=== PATIENT | female | born 1995 | race Caucasian/White ===

== ENCOUNTER 2016-07-30 04:16 | Emergency (ER) ==
[2016-07-30 04:18] VITALS: BMI 17.4
[2016-07-30 04:28] VITALS: BP 132/69; TEMP 98.5
[2016-07-30] MEDS ORDERED: NORCO 7.5-325 PO STA (04:57)
[2016-07-30] MEDS ORDERED: DECADRON 4 MG/ML SDV IM STA (04:57)
--- NOTE | 2016-07-30 05:00 | ED.PDOC ---
General ED Provider: Dr. DEMETRIO RAJPUT Chief Complaint: Back Pain Stated Complaint: Was trying to move the table yesterday night, it started the lower back pain, radiates to right leg, Time Seen by Physician: 04:58 Mode of Arrival: Walk-In Information Source: Patient Primary Care Provider: RUFUS NERI Nursing and Triage Documentation Reviewed and Agree: Yes Musculoskeletal Complaint Exam - Back Pain Complaint/Exam Mechanism of Injury: Reports: No known trauma Symptoms Are: Still present Timing: Constant Episodes Lasting: Hours Initial Severity: Moderate Current Severity: Moderate Location: Reports: Discrete Character: Reports: Aching, Throbbing Aggravating: Reports: Movements, Lifting Alleviating: Reports: None Associated Signs and Symptoms: Denies: Swelling, Redness, Bruising, Fever, Weakness, Numbness, Tingling, Abdominal pain, Flank pain, Bladder incontinence, Bowel incontinence, Weight loss, Pain with weight bearing Related History: Reports: Similar episode TAD Risk Factors: Reports: None AAA Risk Factors: Reports: None Cauda Equina Risk Factors: Reports: None Epidural Abcess Risk Factors: Reports: None Related Surgical History: Reports: None Focal Tenderness: Yes Paraspinal Muscle Tenderness: Yes Paraspinal Muscle Spasm: Yes Scoliosis: Yes Lordosis: No Kyphosis: No SLR Test: Right Positive, Left Negative Hip Motion Testing Pain: Right Negative, Left Negative Focal Weakness: Present: None Focal Sensory Loss: Present: None Gait: Present: Normal Differential Diagnoses: Herniated Disk, Sprain Review of Systems - Review Of Systems Constitutional: Reports: No symptoms Eyes: Reports: No symptoms Ears, Nose, Mouth, Throat: Reports: No symptoms Respiratory: Reports: No symptoms Cardiac: Reports: No symptoms GI: Reports: No symptoms : Reports: No symptoms Musculoskeletal: Reports: Back pain Skin: Reports: No symptoms Neurological: Reports: No symptoms Endocrine: Reports: No symptoms Hematologic/Lymphatic: Reports: No symptoms All Other Systems: Reviewed and Negative Past Medical History - Past Medical History Previously Healthy: No Endocrine: Reports: None Cardiovascular: Reports: None Respiratory: Reports: None Hematological: Reports: None Gastrointestinal: Reports: None Genitourinary: Reports: None Neuro/Psych: Reports: None Musculoskeletal: Reports: Back Pain Cancer: Reports: None Last Menstrual Period: 07/11/16 Other Pertinent Past Medical History: chronic low back pain..followed in [place] - Surgical History General Surgical History: Reports: Unknown - Family History Family History: Reports: Unknown - Social History Smoking Status: Current every day smoker, Light tobacco smoker Smoking Cessation Counseling Time: > 3 min - 10 min Hx Substance Use: No Alcohol Screening: None - Immunizations Tetanus Shot up to Date: Yes Physical Exam - Physical Exam Appearance: Well-appearing, Thin Pain Distress: Moderate Eyes: BREONNA, EOMI, Conjunctiva clear ENT: Ears normal, Nose normal, Oropharynx normal Respiratory: Airway patent, Breath sounds clear, Breath sounds equal, Respirations nonlabored Cardiovascular: RRR, Pulses normal, No rub, No murmur GI/: Soft, Nontender, No masses, Bowel sounds normal, No Organomegaly Musculoskeletal: ROM intact, No edema, No calf tenderness, Limited ROM Skin: Warm, Dry, Normal color Neurological: Sensation intact, Motor intact, Reflexes intact, Cranial nerves intact, Alert, Oriented Psychiatric: Affect appropriate, Mood appropriate Critical Care Note - Critical Care Note Total Time (mins): 0 Course - Course Orders, Labs, Meds: Lab Review 07/30/16 04:30 Urine Color Yellow Urine Clarity Clear Urine pH 7.0 Ur Specific [place] 1.010 Urine Protein Negative Urine Glucose (UA) Negative Urine Ketones Negative Urine Blood Negative Urine Nitrite Negative Urine Bilirubin Negative Urine Urobilinogen 0.2 Ur Leukocyte Esterase Negative Urine Test Negative Orders Category Date Time Status URINALYSIS C & S IF INDICATED Stat LAB 07/30/16 04:30 Completed URINE Stat LAB 07/30/16 04:30 Completed Dexamethasone 4 mg/ml Inj [Decadron 4 mg/ml Sdv] MEDS 07/30/16 04:57 Discontinued 4 mg IM ONCE STA Hydrocodone Bit/Acetaminophen [[place] 7.5-325] MEDS 07/30/16 04:57 Discontinued 1 tab PO ONCE STA CT LUMBAR SPINE W/O CONTRAST Stat RADS 07/30/16 04:57 Ordered Medications Discontinued Medications Generic Name Dose Route Start Last Admin Trade Name Freq PRN Reason Stop Dose Admin Acetaminophen/Hydrocodone Bitart 1 tab 07/30/16 04:57 [place] 7.5-325 PO 07/30/16 04:58 ONCE STA Dexamethasone Sodium Phosphate 4 mg 07/30/16 04:57 Decadron 4 Mg/Ml Sdv IM 07/30/16 04:58 ONCE STA Vital Signs: Temp Pulse Resp BP Pulse Ox 07/30/16 04:18 98.5 F 81 20 132/69 99 Departure - Departure Time of Disposition: 05:17 Disposition: HOME SELF-CARE Discharge Problem: Sciatica Qualifiers: Laterality: right Qualifier Code: (M54.31) Sciatica, right side Instructions: Lumbar Radiculopathy (ED) Condition: Stable Pt referred to PMD for follow-up: Yes Additional Instructions: REST HOT PACK KEEP F/U PMD Prescriptions: Hydrocodone/Acetaminophen [[place] 5-325 Tablet] 1 tab PO TID PRN #12 tablet PRN Reason: PAIN Prednisone 10 mg PO BIDWM #14 tablet Allergies/Adverse Reactions: Allergies ketorolac [From Toradol] Adverse Reaction (Verified 07/30/16 04:25) Nausea tramadol Adverse Reaction (Verified 07/30/16 04:24) Nausea Home Medications: Ambulatory Orders Hydrocodone/Acetaminophen [[place] 5-325 Tablet] 1 tab PO TID PRN #12 tablet 07/30 Nitrofurantoin Macrocrystal [Nitrofurantoin] 100 mg PO BID 07/30/16 Prednisone 10 mg PO BIDWM #14 tablet 07/30/16 Disposition Discussed With: Patient
[2016-07-30 05:06] LABS: ADD URINE MICROSCOPIC NO; BILIRUBIN,URINE Negative (NEGATIVE); KETONES,URINE Negative (NEGATIVE); LEUKOCYTE ESTERASE ,URINE Negative (NEGATIVE); NITRITE,URINE Negative (NEGATIVE); PROTEIN,URINE Negative (NEGATIVE); URINE, BLOOD Negative (NEGATIVE)
[2016-07-30 05:08] LABS: URINE PREGNANCY INTERNAL QC INTERNAL QC VALID
--- NOTE | 2016-07-30 05:53 | CT ---
EXAM: CT lumbar spine without intravenous hours 07/30/2016. Sagittal and coronal reformatted image s obtained HISTORY: Lifting injury COMPARISON: 03/05/2016 FINDINGS: A normal lumbar lordosis is maintained. There is scoliotic curvature with convexity to t he right which appears stable and chronic. The vertebral bodies appear intact without fracture. The facet joints align normally. Multilevel posterior disc bulge flattening the thecal sac. No definitive spinal stenosis. Multilev el mild neural foraminal stenosis appears chronic. IMPRESSION: No acute osseous abnormality of the lumbar spine.
== END 2016-07-30 06:03 | disposition home or self-care (01) ==
LOC: ED 04:16
DX: M54.41 Lumbago with sciatica, right side (principal); F17.210 Nicotine dependence, cigarettes, uncomplicated
CPT/HCPCS: 81001; 81025; 96372; 99283

== ENCOUNTER 2016-09-13 00:37 | Emergency (ER) ==
[2016-09-13 00:52] VITALS: BP 105/78; TEMP 99.1; BMI 17.6
[2016-09-13] MEDS ORDERED: ZOFRAN 4 MG/2 ML IM STA (01:01)
[2016-09-13] MEDS ORDERED: DILAUDID 1 MG/ML SYRINGE IM STA (01:01)
[2016-09-13] MEDS ORDERED: DECADRON 4 MG/ML SDV IM STA (01:01)
--- NOTE | 2016-09-13 01:04 | ED.PDOC ---
General ED Provider: Dr. ROSA ISELA BARNETT-ER Chief Complaint: Back Pain Stated Complaint: my back has been hurting for over a month--i see dr rodríguez for my back --i had ct scan and mri..i have lumbar radiculopathy Time Seen by Physician: 00:45 Mode of Arrival: Walk-In Information Source: Patient, Family Exam Limitations: No limitations Nursing and Triage Documentation Reviewed and Agree: Yes Musculoskeletal Complaint Exam - Back Pain Complaint/Exam Mechanism of Injury: Reports: No known trauma Onset/Duration: several weeks Symptoms Are: Still present Timing: Constant Initial Severity: Mild Current Severity: Moderate Location: Reports: Discrete Character: Reports: Dull, Aching Aggravating: Reports: Movements, Lifting, Bending, Walking Alleviating: Reports: None Associated Signs and Symptoms: Reports: Tingling Related History: Reports: Similar episode TAD Risk Factors: Reports: None AAA Risk Factors: Reports: None Cauda Equina Risk Factors: Reports: None Epidural Abcess Risk Factors: Reports: None Related Surgical History: Reports: None Focal Tenderness: No Paraspinal Muscle Tenderness: No Paraspinal Muscle Spasm: No Scoliosis: No Lordosis: No Kyphosis: No SLR Test: Right Negative, Left Negative Hip Motion Testing Pain: Right Negative, Left Negative Focal Weakness: Present: None Focal Sensory Loss: Present: None Gait: Present: Normal Differential Diagnoses: Herniated Disk Review of Systems - Review Of Systems Constitutional: Reports: No symptoms Eyes: Reports: No symptoms Ears, Nose, Mouth, Throat: Reports: No symptoms Respiratory: Reports: No symptoms Cardiac: Reports: No symptoms GI: Reports: No symptoms : Reports: No symptoms Musculoskeletal: Reports: Back pain Skin: Reports: No symptoms Neurological: Reports: No symptoms Endocrine: Reports: No symptoms Hematologic/Lymphatic: Reports: No symptoms All Other Systems: Reviewed and Negative Past Medical History - Past Medical History Previously Healthy: No Endocrine: Reports: None Cardiovascular: Reports: None Respiratory: Reports: None Hematological: Reports: None Gastrointestinal: Reports: None Genitourinary: Reports: None Neuro/Psych: Reports: None Musculoskeletal: Reports: Back Pain Cancer: Reports: None Last Menstrual Period: 07/11/16 Other Pertinent Past Medical History: chronic low back pain..followed in [place] - Surgical History General Surgical History: Reports: Unknown - Family History Family History: Reports: Unknown - Social History Smoking Status: Current every day smoker, Light tobacco smoker Hx Substance Use: No Alcohol Screening: None Lives: With family - Immunizations Tetanus Shot up to Date: Yes Physical Exam - Physical Exam Appearance: Well-appearing, No pain distress, Well-nourished Pain Distress: Moderate Eyes: BREONNA, EOMI, Conjunctiva clear ENT: Ears normal, Nose normal, Oropharynx normal Neck: Supple Respiratory: Airway patent, Breath sounds clear, Breath sounds equal, Respirations nonlabored Cardiovascular: RRR, Pulses normal, No rub, No murmur GI/: Soft Musculoskeletal: Limited ROM Skin: Warm, Dry, Normal color Neurological: Sensation intact, Motor intact, Reflexes intact, Cranial nerves intact, Alert, Oriented Psychiatric: Affect appropriate, Mood appropriate Critical Care Note - Critical Care Note Total Time (mins): 0 Course - Course Orders, Labs, Meds: Orders Category Date Time Status URINE Stat LAB 09/13/16 01:02 Uncollected Dexamethasone 4 mg/ml Inj [Decadron 4 mg/ml Sdv] MEDS 09/13/16 01:01 Stat 4 mg IM ONCE STA Hydromorphone HCl [Dilaudid 1 mg/ml Syringe] MEDS 09/13/16 01:01 Stat 1 mg IM ONCE STA Ondansetron HCl/Pf [Zofran 4 mg/2 ml] MEDS 09/13/16 01:01 Stat 4 mg IM ONCE STA Medications Generic Name Dose Route Start Last Admin Trade Name Dian PRN Reason Stop Dose Admin Dexamethasone Sodium Phosphate 4 mg 09/13/16 01:01 Decadron 4 Mg/Ml Sdv IM 09/13/16 01:02 ONCE STA Vital Signs: Temp Pulse Resp BP Pulse Ox 09/13/16 00:41 99.1 F 90 20 105/78 99 Departure - Departure Time of Disposition: 01:05 Disposition: HOME SELF-CARE Discharge Problem: Acute lumbar radiculopathy Instructions: Lumbar Radiculopathy (ED) Condition: Good Pt referred to PMD for follow-up: Yes Additional Instructions: f/u wtih dr rodríguez tomorrow Allergies/Adverse Reactions: Allergies ketorolac [From Toradol] Adverse Reaction (Verified 09/13/16 00:41) Nausea tramadol Adverse Reaction (Verified 09/13/16 00:41) Nausea Home Medications: Ambulatory Orders 1 [No Reported Medications] 09/13/16 Disposition Discussed With: Patient, Family
== END 2016-09-13 02:18 | disposition home or self-care (01) ==
LOC: ED 00:37
DX: M54.16 Radiculopathy, lumbar region (principal); F17.210 Nicotine dependence, cigarettes, uncomplicated
CPT/HCPCS: 36415; 84702; 96372; 99283